=== PATIENT | female | born 1975 | race Caucasian/White ===

== ENCOUNTER 2022-03-06 09:00 | Outpatient (RCR) | payer OTHER, SELFPAY ==
--- NOTE | 2022-02-24 14:04 | ONC.NURNOTE ---
Authorization: User: Alessandra Shine Date: 05/24/21 11:03 Type: Eligibility Determination Note... Request received from [facility] for prior authorization of Oxaliplatin J9263, Leucovorin Calcium J0640, Fluorouracil J9190 and Aloxi J2469. Patient carries [facility] as primary insurance. Cristobal Lin at [facility] Oxaliplatin, Leucovorin, Fluorouracil and Aloxi [facility] approved from 05/30/2021 through 05/30/2022. Authorization #[id number]
[2022-02-27 08:08] LABS: Basophils Absolute Auto 0.03 K/uL (0.00-0.30); Basophils Percent Auto 0.6 % (0.0-3.0); Eosinophils Percent Auto 7.1 % (0.0-7.0); Hematocrit 37.8 % (33.0-51.0); Hemoglobin* 12.3 gm/dL (12.0-16.0); Immature Granulocytes Abs Auto 0.01 K/uL (0.00-0.30); Lymphocytes Percent Auto 21.5 % (20-44); Mean Corpuscular HGB Conc 33 gm/dL (32-36); Mean Corpuscular Hemoglobin 27 pg (26-34); Mean Corpuscular Volume 83 fL (80-100); Monocytes Percent Auto 8.2 % (0.0-11.0); Neutrophils Absolute Auto 2.91 K/uL (1.7-7.0); Neutrophils Percent Auto 62.4 % (42.0-72.0); Platelet Count* 282 K/uL (140-440); RDW Coefficient of Variation % 13.5 % (11.5-15.5); Red Blood Count 4.58 m/uL (4.00-5.20); White Blood Count* 4.66 K/uL (4.50-11.00)
[2022-02-27 08:21] LABS: Albumin* 4.3 g/dL (3.3-5.0); Chloride* 104 mmol/L (96-114); Slide Review Reflex No; Sodium* 137 mmol/L (135-149)
[2022-02-27 08:24] LABS: Alanine Aminotransferase* 15 U/L (4-35); Alkaline Phosphatase* 84 U/L (40-150); Aspartate Amino Transferase* 24 U/L (12-35); Bilirubin Total* 0.5 mg/dL (0.1-1.5); Blood Urea Nitrogen* 15 mg/dL (5-24); Carbon Dioxide* 26 mmol/L (20-32); Creatinine* 0.7 mg/dL (0.5-1.5); Est. Creatinine Clearance* 91.32; Estimated Glomerular Filt Rate 109 ml/min; Glucose* 96 mg/dL (60-115); Total Protein* 7.1 g/dL (6.0-8.3)
[2022-02-27 08:25] LABS: Calcium* 9.2 mg/dL (8.4-10.6)
--- NOTE | 2022-03-08 13:50 | ONC.NURNOTE ---
Addendum entered and electronically signed by Shanellabner Farris, OFFICE SUPPORT ASSOCIATE 03/08/22 18:41: Dr. Rivera recommends if Ablation occurs on March 20, Ms. Barba's 5FU treatments could start possibly two weeks later around April 03. We will follow previous plan for 75% of 5FU doses for weeks one and two and then give 5FU along with oxaliplatin for week three. Also recommend stopping eliquis for 3-4 days prior to ablation, and have Ms. Barba verify with Dr. Arambula's team. This information was shared with Ms. Barba with request to contact us after her ablation with update on her status. She is agreeable to this plan. Original Note: Coordination of care: Holding FLOX chemo, to have ablation. After further discussion with Dr. Rivera and Dr. Arambula at [facility], Ms. Barba has decided to proceed with lung ablation before receiving FLOX chemotherapy. She has appointment with Dr. Arambula for Ablation at [place] on March 20. Questions regarding anticoagulation prior to ablation deferred to Dr. Arambula's team. Will message Dr. Rivera and also have Ms. Barba follow up with Dr. Arambula regarding when to schedule chemotherapy.
== END 2022-03-12 23:59 | disposition home or self-care (01) ==
LOC: CCIC 09:00
PROVIDERS: Visit Provider Internal Medicine Medical Oncology
DX: C20 Malignant neoplasm of rectum (principal)
CPT/HCPCS: 36415; 36591; 80053; 85025; 99212; 99215

== ENCOUNTER 2022-09-25 09:30 | Outpatient (RCR) | payer BC, OTHER, SELFPAY ==
[2022-04-03 09:37] LABS: Basophils Absolute Auto 0.04 K/uL (0.00-0.30); Basophils Percent Auto 0.7 % (0.0-3.0); Eosinophils Absolute Auto 0.31 K/uL (0.00-0.50); Eosinophils Percent Auto 5.6 % (0.0-7.0); Hematocrit 36.2 % (33.0-51.0); Hemoglobin* 11.8 gm/dL (12.0-16.0); Immature Granulocytes Abs Auto 0.01 K/uL (0.00-0.30); Lymphocytes Percent Auto 17.4 % (20-44); Mean Corpuscular HGB Conc 33 gm/dL (32-36); Mean Corpuscular Hemoglobin 27 pg (26-34); Mean Corpuscular Volume 83 fL (80-100); Monocytes Percent Auto 7.4 % (0.0-11.0); Neutrophils Absolute Auto 3.83 K/uL (1.7-7.0); Neutrophils Percent Auto 68.7 % (42.0-72.0); Platelet Count* 311 K/uL (140-440); RDW Coefficient of Variation % 12.2 % (11.5-15.5); Red Blood Count 4.39 m/uL (4.00-5.20); White Blood Count* 5.57 K/uL (4.50-11.00)
[2022-04-03 09:40] LABS: Slide Review Reflex No
[2022-04-03 10:34] LABS: Chloride* 105 mmol/L (96-114); Sodium* 138 mmol/L (135-149)
[2022-04-03 10:35] LABS: Potassium* 3.9 mmol/L (3.6-5.1)
[2022-04-03 10:37] LABS: Alanine Aminotransferase* 20 U/L (4-35); Alkaline Phosphatase* 101 U/L (40-150); Aspartate Amino Transferase* 26 U/L (12-35); Bilirubin Total* 0.4 mg/dL (0.1-1.5); Blood Urea Nitrogen* 19 mg/dL (5-24); Carbon Dioxide* 26 mmol/L (20-32); Creatinine* 0.7 mg/dL (0.5-1.5); Estimated Glomerular Filt Rate 109 ml/min; Glucose* 93 mg/dL (60-115); Total Protein* 7.1 g/dL (6.0-8.3)
[2022-04-03 10:38] LABS: Calcium* 8.7 mg/dL (8.4-10.6)
[2022-04-03] MEDS: ONDANSETRON 2 MG/ML inj 8 MG IVP (10:56)
[2022-04-03] MEDS: fluorouraciL 50 mg/ml INJ 650 MG IV (13:40)
[2022-04-03] MEDS: SODIUM CHLORIDE 0.9 % (FLUSH) 10 ML SYRINGE IVF (15:39)
[2022-04-03] MEDS: HEPARIN 500 UNIT/5 ML SYRINGE IVF (15:39)
[2022-04-03 16:27] VITALS: PULSE 70; RESP 12; TEMP 36.1; O2SAT 98
[2022-04-10 10:04] VITALS: BP 127/77; PULSE 77; RESP 16; TEMP 37; O2SAT 98
[2022-04-10 10:21] LABS: Basophils Percent Auto 0.5 % (0.0-3.0); Eosinophils Percent Auto 6.3 % (0.0-7.0); Hematocrit 36.1 % (33.0-51.0); Hemoglobin* 11.8 gm/dL (12.0-16.0); Immature Granulocytes Abs Auto 0.01 K/uL (0.00-0.30); Lymphocytes Percent Auto 17.4 % (20-44); Mean Corpuscular HGB Conc 33 gm/dL (32-36); Mean Corpuscular Hemoglobin 27 pg (26-34); Mean Corpuscular Volume 84 fL (80-100); Monocytes Percent Auto 9.3 % (0.0-11.0); Neutrophils Percent Auto 66.3 % (42.0-72.0); Platelet Count* 302 K/uL (140-440); RDW Coefficient of Variation % 12.3 % (11.5-15.5); Red Blood Count 4.32 m/uL (4.00-5.20); White Blood Count* 4.31 K/uL (4.50-11.00)
[2022-04-10 10:25] LABS: Slide Review Reflex No
[2022-04-10 10:32] LABS: Albumin* 4.2 g/dL (3.3-5.0); Chloride* 104 mmol/L (96-114); Potassium* 3.8 mmol/L (3.6-5.1); Sodium* 139 mmol/L (135-149)
[2022-04-10 10:35] LABS: Alanine Aminotransferase* 14 U/L (4-35); Alkaline Phosphatase* 82 U/L (40-150); Aspartate Amino Transferase* 25 U/L (12-35); Bilirubin Total* 0.4 mg/dL (0.1-1.5); Blood Urea Nitrogen* 16 mg/dL (5-24); Carbon Dioxide* 27 mmol/L (20-32); Creatinine* 0.7 mg/dL (0.5-1.5); Estimated Glomerular Filt Rate 109 ml/min; Glucose* 121 mg/dL (60-115); Total Protein* 7.1 g/dL (6.0-8.3)
[2022-04-10 10:36] LABS: Calcium* 8.8 mg/dL (8.4-10.6)
[2022-04-10] MEDS: ONDANSETRON 2 MG/ML inj 8 MG IVP (11:12)
[2022-04-10] MEDS: SODIUM CHLORIDE 0.9 % (FLUSH) 10 ML SYRINGE IVF (11:13)
[2022-04-10] MEDS: fluorouraciL 50 mg/ml INJ 650 MG IV (13:23)
[2022-04-18 09:54] LABS: Basophils Absolute Auto 0.04 K/uL (0.00-0.30); Basophils Percent Auto 0.8 % (0.0-3.0); Eosinophils Absolute Auto 0.27 K/uL (0.00-0.50); Eosinophils Percent Auto 5.5 % (0.0-7.0); Hematocrit 36.9 % (33.0-51.0); Hemoglobin* 12.1 gm/dL (12.0-16.0); Lymphocytes Percent Auto 22.4 % (20-44); Mean Corpuscular HGB Conc 33 gm/dL (32-36); Mean Corpuscular Hemoglobin 27 pg (26-34); Mean Corpuscular Volume 83 fL (80-100); Neutrophils Absolute Auto 3.06 K/uL (1.7-7.0); Neutrophils Percent Auto 62.3 % (42.0-72.0); Platelet Count* 247 K/uL (140-440); RDW Coefficient of Variation % 13.1 % (11.5-15.5); Red Blood Count 4.43 m/uL (4.00-5.20); White Blood Count* 4.91 K/uL (4.50-11.00)
[2022-04-18 10:10] LABS: Albumin* 4.5 g/dL (3.3-5.0); Chloride* 102 mmol/L (96-114); Potassium* 4.3 mmol/L (3.6-5.1); Slide Review Reflex No; Sodium* 136 mmol/L (135-149)
[2022-04-18 10:13] LABS: Alanine Aminotransferase* 13 U/L (4-35); Alkaline Phosphatase* 84 U/L (40-150); Aspartate Amino Transferase* 23 U/L (12-35); Bilirubin Total* 0.5 mg/dL (0.1-1.5); Blood Urea Nitrogen* 17 mg/dL (5-24); Carbon Dioxide* 27 mmol/L (20-32); Creatinine* 0.7 mg/dL (0.5-1.5); Estimated Glomerular Filt Rate 109 ml/min; Glucose* 93 mg/dL (60-115); Total Protein* 7.3 g/dL (6.0-8.3)
[2022-04-18 10:14] LABS: Calcium* 8.9 mg/dL (8.4-10.6)
[2022-04-18] MEDS: PALONOSETRON 0.25 MG/5 ML inj IVP (11:18)
[2022-04-18] MEDS: SODIUM CHLORIDE 0.9 % (FLUSH) 10 ML SYRINGE IVF ×2 (11:18→14:03)
[2022-04-18] MEDS: dexAMETHasone 20 MG in 0.9 % SODIUM CHLORIDE 100 ml 100 ML 408 MG IVPB (11:18)
[2022-04-18] MEDS: HEPARIN 500 UNIT/5 ML SYRINGE IVF (14:03)
[2022-04-18] MEDS: fluorouraciL 50 mg/ml INJ 650 MG IV (14:03)
[2022-04-24 09:41] LABS: Basophils Percent Auto 0.7 % (0.0-3.0); Eosinophils Percent Auto 6.5 % (0.0-7.0); Hematocrit 37.3 % (33.0-51.0); Hemoglobin* 12.3 gm/dL (12.0-16.0); Mean Corpuscular HGB Conc 33 gm/dL (32-36); Mean Corpuscular Hemoglobin 27 pg (26-34); Mean Corpuscular Volume 83 fL (80-100); Monocytes Percent Auto 9.3 % (0.0-11.0); Neutrophils Percent Auto 60.5 % (42.0-72.0); Platelet Count* 262 K/uL (140-440); Red Blood Count 4.52 m/uL (4.00-5.20); White Blood Count* 4.18 K/uL (4.50-11.00)
[2022-04-24 09:49] LABS: Albumin* 4.4 g/dL (3.3-5.0); Chloride* 104 mmol/L (96-114); Potassium* 4.3 mmol/L (3.6-5.1); Sodium* 137 mmol/L (135-149)
[2022-04-24 09:51] LABS: Bilirubin Total* 0.5 mg/dL (0.1-1.5); Creatinine* 0.7 mg/dL (0.5-1.5); Estimated Glomerular Filt Rate 109 ml/min
[2022-04-24 09:51] LABS: Slide Review Reflex No
[2022-04-24 09:52] LABS: Alanine Aminotransferase* 13 U/L (4-35); Alkaline Phosphatase* 80 U/L (40-150); Aspartate Amino Transferase* 22 U/L (12-35); Blood Urea Nitrogen* 20 mg/dL (5-24); Carbon Dioxide* 27 mmol/L (20-32); Glucose* 105 mg/dL (60-115); Total Protein* 7.2 g/dL (6.0-8.3)
[2022-04-24] MEDS: PALONOSETRON 0.25 MG/5 ML inj IVP (11:31)
[2022-04-24] MEDS: 5 % DEXTROSE 250 ML IV (12:33)
[2022-04-24] MEDS: HEPARIN 500 UNIT/5 ML SYRINGE IVF (12:33)
[2022-04-24] MEDS: fluorouraciL 50 mg/ml INJ 650 MG IV (13:12)
[2022-05-01 09:35] VITALS: BP 110/74; PULSE 74; RESP 16; TEMP 36.3; O2SAT 100
[2022-05-01 10:05] LABS: Basophils Absolute Auto 0.03 K/uL (0.00-0.30); Basophils Percent Auto 0.6 % (0.0-3.0); Eosinophils Absolute Auto 0.31 K/uL (0.00-0.50); Eosinophils Percent Auto 6.3 % (0.0-7.0); Hematocrit 34.1 % (33.0-51.0); Hemoglobin* 11.3 gm/dL (12.0-16.0); Lymphocytes Absolute Auto 1.12 K/uL (0.90-2.90); Lymphocytes Percent Auto 22.8 % (20-44); Mean Corpuscular HGB Conc 33 gm/dL (32-36); Mean Corpuscular Hemoglobin 28 pg (26-34); Mean Corpuscular Volume 84 fL (80-100); Monocytes Percent Auto 7.1 % (0.0-11.0); Neutrophils Absolute Auto 3.11 K/uL (1.7-7.0); Neutrophils Percent Auto 63.2 % (42.0-72.0); Platelet Count* 239 K/uL (140-440); RDW Coefficient of Variation % 13.2 % (11.5-15.5); Red Blood Count 4.08 m/uL (4.00-5.20); White Blood Count* 4.92 K/uL (4.50-11.00)
[2022-05-01 10:13] LABS: Slide Review Reflex No
[2022-05-01 10:18] LABS: Albumin* 4.2 g/dL (3.3-5.0); Chloride* 104 mmol/L (96-114); Sodium* 138 mmol/L (135-149)
[2022-05-01 10:20] LABS: Carbon Dioxide* 27 mmol/L (20-32); Creatinine* 0.6 mg/dL (0.5-1.5); Estimated Glomerular Filt Rate 113 ml/min
[2022-05-01 10:21] LABS: Alanine Aminotransferase* 14 U/L (4-35); Alkaline Phosphatase* 79 U/L (40-150); Aspartate Amino Transferase* 23 U/L (12-35); Bilirubin Total* 0.2 mg/dL (0.1-1.5); Blood Urea Nitrogen* 19 mg/dL (5-24); Calcium* 8.7 mg/dL (8.4-10.6); Glucose* 100 mg/dL (60-115); Total Protein* 6.8 g/dL (6.0-8.3)
[2022-05-01] MEDS: 5 % DEXTROSE 250 ML IV (11:16)
[2022-05-01] MEDS: dexAMETHasone 20 MG in 0.9 % SODIUM CHLORIDE 100 ml 100 ML 408 MG IVPB (11:16)
[2022-05-01] MEDS: PALONOSETRON 0.25 MG/5 ML inj IVP (11:16)
[2022-05-01] MEDS: fluorouraciL 50 mg/ml INJ 650 MG IV (13:55)
[2022-05-01] MEDS: SODIUM CHLORIDE 0.9 % (FLUSH) 10 ML SYRINGE IVF (14:00)
[2022-05-01] MEDS: HEPARIN 500 UNIT/5 ML SYRINGE IVF (14:00)
[2022-05-08 09:34] VITALS: BP 110/75; PULSE 74; RESP 16; TEMP 36.1; O2SAT 99
[2022-05-08 09:57] LABS: Basophils Absolute Auto 0.03 K/uL (0.00-0.30); Basophils Percent Auto 0.6 % (0.0-3.0); Eosinophils Percent Auto 8.8 % (0.0-7.0); Hematocrit 34.7 % (33.0-51.0); Hemoglobin* 11.7 gm/dL (12.0-16.0); Immature Granulocytes Abs Auto 0.01 K/uL (0.00-0.30); Lymphocytes Percent Auto 27.3 % (20-44); Mean Corpuscular HGB Conc 34 gm/dL (32-36); Mean Corpuscular Hemoglobin 28 pg (26-34); Mean Corpuscular Volume 83 fL (80-100); Monocytes Percent Auto 9.2 % (0.0-11.0); Neutrophils Absolute Auto 2.57 K/uL (1.7-7.0); Neutrophils Percent Auto 53.9 % (42.0-72.0); Platelet Count* 259 K/uL (140-440); RDW Coefficient of Variation % 14.2 % (11.5-15.5); Red Blood Count 4.17 m/uL (4.00-5.20); White Blood Count* 4.77 K/uL (4.50-11.00)
[2022-05-08 10:10] LABS: Albumin* 4.1 g/dL (3.3-5.0); Chloride* 102 mmol/L (96-114); Sodium* 137 mmol/L (135-149)
[2022-05-08 10:11] LABS: Potassium* 3.8 mmol/L (3.6-5.1)
[2022-05-08 10:12] LABS: Slide Review Reflex No
[2022-05-08 10:13] LABS: Alanine Aminotransferase* 13 U/L (4-35); Alkaline Phosphatase* 75 U/L (40-150); Aspartate Amino Transferase* 18 U/L (12-35); Bilirubin Total* 0.4 mg/dL (0.1-1.5); Blood Urea Nitrogen* 17 mg/dL (5-24); Carbon Dioxide* 29 mmol/L (20-32); Creatinine* 0.7 mg/dL (0.5-1.5); Estimated Glomerular Filt Rate 109 ml/min; Glucose* 112 mg/dL (60-115); Total Protein* 6.6 g/dL (6.0-8.3)
[2022-05-08 10:14] LABS: Calcium* 8.8 mg/dL (8.4-10.6)
[2022-05-08] MEDS: SODIUM CHLORIDE 0.9 % (FLUSH) 10 ML SYRINGE IVF (10:49)
[2022-05-08] MEDS: PROCHLORPERAZINE 10 MG TABLET PO (10:49)
[2022-05-08] MEDS: HEPARIN 500 UNIT/5 ML SYRINGE IVF (10:49)
[2022-05-08] MEDS: PALONOSETRON 0.25 MG/5 ML inj IVP (10:49)
[2022-05-08] MEDS: fluorouraciL 50 mg/ml INJ 650 MG IV (13:27)
--- NOTE | 2022-05-08 14:02 | ONC.NURNOTE ---
states taking liquids well. good u/o. nausea today. last couple of day 3-4 diarrhea. Shanell Strong APRN aware and aloxi and compazine ordered for nausea with relief.
[2022-05-29 09:07] LABS: Basophils Percent Auto 0.8 % (0.0-3.0); Eosinophils Percent Auto 5.8 % (0.0-7.0); Hematocrit 38.4 % (33.0-51.0); Hemoglobin* 12.9 gm/dL (12.0-16.0); Immature Granulocytes Abs Auto 0.01 K/uL (0.00-0.30); Lymphocytes Percent Auto 25.3 % (20-44); Mean Corpuscular HGB Conc 34 gm/dL (32-36); Mean Corpuscular Hemoglobin 28 pg (26-34); Mean Corpuscular Volume 84 fL (80-100); Monocytes Percent Auto 9.3 % (0.0-11.0); Neutrophils Percent Auto 58.5 % (42.0-72.0); Platelet Count* 225 K/uL (140-440); RDW Coefficient of Variation % 15.7 % (11.5-15.5); Red Blood Count 4.55 m/uL (4.00-5.20); White Blood Count* 3.99 K/uL (4.50-11.00)
[2022-05-29 09:24] LABS: Albumin* 4.6 g/dL (3.3-5.0); Chloride* 103 mmol/L (96-114); Potassium* 4.2 mmol/L (3.6-5.1); Sodium* 138 mmol/L (135-149)
[2022-05-29 09:26] LABS: Bilirubin Total* 0.5 mg/dL (0.1-1.5); Carbon Dioxide* 27 mmol/L (20-32); Creatinine* 0.7 mg/dL (0.5-1.5); Estimated Glomerular Filt Rate 109 ml/min
[2022-05-29 09:27] LABS: Alanine Aminotransferase* 35 U/L (4-35); Alkaline Phosphatase* 95 U/L (40-150); Aspartate Amino Transferase* 30 U/L (12-35); Blood Urea Nitrogen* 16 mg/dL (5-24); Calcium* 9.7 mg/dL (8.4-10.6); Glucose* 92 mg/dL (60-115); Total Protein* 7.5 g/dL (6.0-8.3)
[2022-05-29 09:29] LABS: Slide Review Reflex No
[2022-05-29] MEDS: dexAMETHasone 20 MG in 0.9 % SODIUM CHLORIDE 100 ml 100 ML 408 MG IVPB (10:30)
[2022-05-29] MEDS: fluorouraciL 50 mg/ml INJ 650 MG IV (13:11)
[2022-05-29] MEDS: HEPARIN 500 UNIT/5 ML SYRINGE IVF (15:29)
[2022-05-29] MEDS: 5 % DEXTROSE 250 ML IV (15:29)
[2022-05-29] MEDS: SODIUM CHLORIDE 0.9 % (FLUSH) 10 ML SYRINGE IVF (15:29)
--- NOTE | 2022-06-05 08:10 | URNOTE ---
Request received from [facility] for prior authorization of Oxaliplatin J9263, Leucovorin Calcium J0640, Fluorouracil J9190 and Aloxi J2469. Patient carries [facility] as primary insurance. Per Alyse Rodriguez continuation of treatment of Oxalipatin, Leucovorin, Fluorouracil and Aloxi has been Approved from 06/05/22-06/05/23. Authorization #[id number].
[2022-06-05 10:04] VITALS: BP 101/66; PULSE 80; RESP 16; TEMP 36.3; O2SAT 100
[2022-06-05 10:30] LABS: Basophils Absolute Auto 0.02 K/uL (0.00-0.30); Basophils Percent Auto 0.3 % (0.0-3.0); Eosinophils Absolute Auto 0.27 K/uL (0.00-0.50); Eosinophils Percent Auto 3.6 % (0.0-7.0); Hematocrit 35.7 % (33.0-51.0); Hemoglobin* 11.9 gm/dL (12.0-16.0); Immature Granulocytes Abs Auto 0.23 K/uL (0.00-0.30); Lymphocytes Percent Auto 21.5 % (20-44); Mean Corpuscular HGB Conc 33 gm/dL (32-36); Mean Corpuscular Hemoglobin 29 pg (26-34); Mean Corpuscular Volume 85 fL (80-100); Monocytes Percent Auto 7.1 % (0.0-11.0); Neutrophils Absolute Auto 4.78 K/uL (1.7-7.0); Neutrophils Percent Auto 64.4 % (42.0-72.0); Platelet Count* 239 K/uL (140-440); RDW Coefficient of Variation % 15.9 % (11.5-15.5); Red Blood Count 4.18 m/uL (4.00-5.20); White Blood Count* 7.43 K/uL (4.50-11.00)
[2022-06-05 10:39] LABS: Albumin* 4.1 g/dL (3.3-5.0); Chloride* 102 mmol/L (96-114); Sodium* 138 mmol/L (135-149)
[2022-06-05 10:40] LABS: Potassium* 3.9 mmol/L (3.6-5.1)
[2022-06-05 10:42] LABS: Alanine Aminotransferase* 19 U/L (4-35); Alkaline Phosphatase* 87 U/L (40-150); Aspartate Amino Transferase* 21 U/L (12-35); Bilirubin Total* 0.4 mg/dL (0.1-1.5); Blood Urea Nitrogen* 23 mg/dL (5-24); Carbon Dioxide* 27 mmol/L (20-32); Creatinine* 0.7 mg/dL (0.5-1.5); Estimated Glomerular Filt Rate 109 ml/min; Total Protein* 6.6 g/dL (6.0-8.3)
[2022-06-05 10:43] LABS: Calcium* 8.8 mg/dL (8.4-10.6); Glucose* 123 mg/dL (60-115)
[2022-06-05 10:50] LABS: Slide Review Reflex No
[2022-06-05] MEDS: PALONOSETRON 0.25 MG/5 ML inj IVP (11:47)
[2022-06-05] MEDS: 5 % DEXTROSE 250 ML IV (11:47)
[2022-06-05] MEDS: fluorouraciL 50 mg/ml INJ 650 MG IV (13:55)
[2022-06-05] MEDS: SODIUM CHLORIDE 0.9 % (FLUSH) 10 ML SYRINGE IVF (14:00)
[2022-06-05] MEDS: HEPARIN 500 UNIT/5 ML SYRINGE IVF (14:00)
[2022-06-12 10:05] VITALS: BP 117/82; PULSE 77; RESP 16; TEMP 36.8; O2SAT 98
[2022-06-12 10:27] LABS: Basophils Absolute Auto 0.02 K/uL (0.00-0.30); Basophils Percent Auto 0.3 % (0.0-3.0); Eosinophils Absolute Auto 0.14 K/uL (0.00-0.50); Eosinophils Percent Auto 2.3 % (0.0-7.0); Hematocrit 34.1 % (33.0-51.0); Hemoglobin* 11.3 gm/dL (12.0-16.0); Immature Granulocytes Abs Auto 0.03 K/uL (0.00-0.30); Lymphocytes Absolute Auto 1.33 K/uL (0.90-2.90); Lymphocytes Percent Auto 21.6 % (20-44); Mean Corpuscular HGB Conc 33 gm/dL (32-36); Mean Corpuscular Hemoglobin 29 pg (26-34); Mean Corpuscular Volume 87 fL (80-100); Monocytes Percent Auto 8.1 % (0.0-11.0); Neutrophils Absolute Auto 4.15 K/uL (1.7-7.0); Neutrophils Percent Auto 67.2 % (42.0-72.0); Platelet Count* 214 K/uL (140-440); RDW Coefficient of Variation % 16.1 % (11.5-15.5); Red Blood Count 3.94 m/uL (4.00-5.20); White Blood Count* 6.17 K/uL (4.50-11.00)
[2022-06-12 10:29] LABS: Slide Review Reflex No
[2022-06-12 10:45] LABS: Albumin* 4.1 g/dL (3.3-5.0); Chloride* 104 mmol/L (96-114)
[2022-06-12 10:46] LABS: Potassium* 3.9 mmol/L (3.6-5.1); Sodium* 138 mmol/L (135-149)
[2022-06-12 10:48] LABS: Aspartate Amino Transferase* 26 U/L (12-35); Bilirubin Total* 0.3 mg/dL (0.1-1.5); Blood Urea Nitrogen* 17 mg/dL (5-24); Carbon Dioxide* 28 mmol/L (20-32); Creatinine* 0.6 mg/dL (0.5-1.5); Estimated Glomerular Filt Rate 113 ml/min; Total Protein* 6.7 g/dL (6.0-8.3)
[2022-06-12 10:49] LABS: Alkaline Phosphatase* 76 U/L (40-150); Calcium* 8.7 mg/dL (8.4-10.6); Glucose* 107 mg/dL (60-115)
[2022-06-12 11:07] LABS: Alanine Aminotransferase* 23 U/L (4-35)
[2022-06-12] MEDS: PALONOSETRON 0.25 MG/5 ML inj IVP (11:33)
[2022-06-12] MEDS: dexAMETHasone 20 MG in 0.9 % SODIUM CHLORIDE 100 ml 100 ML 408 MG IVPB (11:34)
[2022-06-12] MEDS: fluorouraciL 50 mg/ml INJ 650 MG IV (14:04)
[2022-06-12] MEDS: HEPARIN 500 UNIT/5 ML SYRINGE IVF (14:14)
[2022-06-12] MEDS: SODIUM CHLORIDE 0.9 % (FLUSH) 10 ML SYRINGE IVF (14:14)
[2022-06-19 10:16] VITALS: BP 121/82; PULSE 83; RESP 16; TEMP 36.7; O2SAT 97
[2022-06-19 10:45] LABS: Basophils Absolute Auto 0.02 K/uL (0.00-0.30); Basophils Percent Auto 0.4 % (0.0-3.0); Eosinophils Absolute Auto 0.24 K/uL (0.00-0.50); Eosinophils Percent Auto 5.3 % (0.0-7.0); Hematocrit 33.5 % (33.0-51.0); Hemoglobin* 11.2 gm/dL (12.0-16.0); Immature Granulocytes Abs Auto 0.04 K/uL (0.00-0.30); Immature Granulocytes Pct Auto 0.9 %; Lymphocytes Absolute Auto 1.26 K/uL (0.90-2.90); Lymphocytes Percent Auto 27.7 % (20-44); Mean Corpuscular HGB Conc 33 gm/dL (32-36); Mean Corpuscular Hemoglobin 29 pg (26-34); Mean Corpuscular Volume 87 fL (80-100); Neutrophils Absolute Auto 2.58 K/uL (1.7-7.0); Neutrophils Percent Auto 56.7 % (42.0-72.0); Platelet Count* 199 K/uL (140-440); Red Blood Count 3.85 m/uL (4.00-5.20); White Blood Count* 4.55 K/uL (4.50-11.00)
[2022-06-19 10:47] LABS: Slide Review Reflex No
[2022-06-19 10:50] LABS: Albumin* 4.1 g/dL (3.3-5.0); Chloride* 105 mmol/L (96-114); Potassium* 3.7 mmol/L (3.6-5.1); Sodium* 138 mmol/L (135-149)
[2022-06-19 10:52] LABS: Creatinine* 0.6 mg/dL (0.5-1.5); Estimated Glomerular Filt Rate 113 ml/min
[2022-06-19 10:53] LABS: Alanine Aminotransferase* 22 U/L (4-35); Alkaline Phosphatase* 72 U/L (40-150); Aspartate Amino Transferase* 23 U/L (12-35); Bilirubin Total* 0.2 mg/dL (0.1-1.5); Blood Urea Nitrogen* 18 mg/dL (5-24); Carbon Dioxide* 26 mmol/L (20-32); Glucose* 107 mg/dL (60-115); Total Protein* 6.7 g/dL (6.0-8.3)
[2022-06-19 10:54] LABS: Calcium* 8.7 mg/dL (8.4-10.6)
[2022-06-19] MEDS: 5 % DEXTROSE 250 ML IV (11:41)
[2022-06-19] MEDS: PALONOSETRON 0.25 MG/5 ML inj IVP (11:41)
[2022-06-19] MEDS: fluorouraciL 50 mg/ml INJ 650 MG IV (13:35)
[2022-06-26 10:56] LABS: Basophils Absolute Auto 0.03 K/uL (0.00-0.30); Basophils Percent Auto 0.6 % (0.0-3.0); Eosinophils Absolute Auto 0.24 K/uL (0.00-0.50); Eosinophils Percent Auto 4.9 % (0.0-7.0); Hematocrit 33.1 % (33.0-51.0); Hemoglobin* 11.2 gm/dL (12.0-16.0); Immature Granulocytes Abs Auto 0.02 K/uL (0.00-0.30); Immature Granulocytes Pct Auto 0.4 %; Lymphocytes Absolute Auto 1.07 K/uL (0.90-2.90); Mean Corpuscular HGB Conc 34 gm/dL (32-36); Mean Corpuscular Hemoglobin 29 pg (26-34); Mean Corpuscular Volume 87 fL (80-100); Monocytes Percent Auto 8.6 % (0.0-11.0); Neutrophils Absolute Auto 3.09 K/uL (1.7-7.0); Neutrophils Percent Auto 63.5 % (42.0-72.0); Platelet Count* 182 K/uL (140-440); RDW Coefficient of Variation % 16.7 % (11.5-15.5); Red Blood Count 3.81 m/uL (4.00-5.20); White Blood Count* 4.87 K/uL (4.50-11.00)
[2022-06-26 11:05] LABS: Slide Review Reflex No
[2022-06-26 11:26] LABS: Albumin* 4.2 g/dL (3.3-5.0); Chloride* 103 mmol/L (96-114); Potassium* 3.5 mmol/L (3.6-5.1); Sodium* 139 mmol/L (135-149)
[2022-06-26 11:29] LABS: Alanine Aminotransferase* 85 U/L (4-35); Alkaline Phosphatase* 89 U/L (40-150); Aspartate Amino Transferase* 56 U/L (12-35); Bilirubin Total* 0.6 mg/dL (0.1-1.5); Blood Urea Nitrogen* 16 mg/dL (5-24); Carbon Dioxide* 29 mmol/L (20-32); Creatinine* 0.7 mg/dL (0.5-1.5); Estimated Glomerular Filt Rate 109 ml/min; Glucose* 101 mg/dL (60-115); Total Protein* 6.9 g/dL (6.0-8.3)
[2022-06-26] MEDS: PALONOSETRON 0.25 MG/5 ML inj IVP (12:18)
[2022-06-26] MEDS: dexAMETHasone 20 MG in 0.9 % SODIUM CHLORIDE 100 ml 100 ML 408 MG IVPB (12:19)
[2022-06-26] MEDS: fluorouraciL 50 mg/ml INJ 650 MG IV (14:59)
[2022-07-03 10:07] VITALS: BP 115/85; PULSE 73; RESP 16; TEMP 37.4; O2SAT 97
[2022-07-03 10:32] LABS: Basophils Absolute Auto 0.02 K/uL (0.00-0.30); Basophils Percent Auto 0.3 % (0.0-3.0); Eosinophils Absolute Auto 0.38 K/uL (0.00-0.50); Eosinophils Percent Auto 6.5 % (0.0-7.0); Hematocrit 34.3 % (33.0-51.0); Hemoglobin* 11.9 gm/dL (12.0-16.0); Immature Granulocytes Abs Auto 0.05 K/uL (0.00-0.30); Immature Granulocytes Pct Auto 0.9 %; Lymphocytes Absolute Auto 1.39 K/uL (0.90-2.90); Lymphocytes Percent Auto 23.8 % (20-44); Mean Corpuscular HGB Conc 35 gm/dL (32-36); Mean Corpuscular Hemoglobin 30 pg (26-34); Mean Corpuscular Volume 87 fL (80-100); Monocytes Percent Auto 10.5 % (0.0-11.0); Neutrophils Absolute Auto 3.38 K/uL (1.7-7.0); Platelet Count* 213 K/uL (140-440); RDW Coefficient of Variation % 16.8 % (11.5-15.5); Red Blood Count 3.94 m/uL (4.00-5.20); White Blood Count* 5.83 K/uL (4.50-11.00)
[2022-07-03 10:33] LABS: Slide Review Reflex No
[2022-07-03 10:46] LABS: Albumin* 4.2 g/dL (3.3-5.0); Chloride* 103 mmol/L (96-114); Potassium* 3.5 mmol/L (3.6-5.1); Sodium* 138 mmol/L (135-149)
[2022-07-03 10:48] LABS: Bilirubin Total* 0.7 mg/dL (0.1-1.5); Carbon Dioxide* 29 mmol/L (20-32); Creatinine* 0.7 mg/dL (0.5-1.5); Estimated Glomerular Filt Rate 109 ml/min
[2022-07-03 10:49] LABS: Alanine Aminotransferase* 76 U/L (4-35); Alkaline Phosphatase* 89 U/L (40-150); Aspartate Amino Transferase* 42 U/L (12-35); Blood Urea Nitrogen* 18 mg/dL (5-24); Calcium* 8.7 mg/dL (8.4-10.6); Glucose* 110 mg/dL (60-115); Total Protein* 6.9 g/dL (6.0-8.3)
[2022-07-03] MEDS: 0.9 % SODIUM CHLORIDE 1000 ml 1,000 ML IV (11:14)
[2022-07-03] MEDS: PALONOSETRON 0.25 MG/5 ML inj IVP (12:12)
[2022-07-03 13:24] LABS: C.Difficile Negative (Negative); CDIFFEPI 027 PRESUMPTIVE NEGATIVE (Negative)
[2022-07-03] MEDS: fluorouraciL 50 mg/ml INJ 650 MG IV (13:48)
[2022-08-21] MEDS: HEPARIN 500 UNIT/5 ML SYRINGE IVF (10:06)
[2022-08-21] MEDS: SODIUM CHLORIDE 0.9 % (FLUSH) 10 ML SYRINGE IVF (10:06)
[2022-09-25] MEDS: HEPARIN 500 UNIT/5 ML SYRINGE IVF (10:52)
[2022-09-25] MEDS: SODIUM CHLORIDE 0.9 % (FLUSH) 10 ML SYRINGE IVF (10:52)
== END 2022-09-30 23:59 | disposition home or self-care (01) ==
LOC: CCIC 09:30
PROVIDERS: Internal Medicine Medical Oncology; Visit Provider Clinical Nurse Specialist
DX: C20 Malignant neoplasm of rectum (principal)
CPT/HCPCS: 36415; 36591; 36592; 80053; 85025; 87493; 96361; 96365; 96366; 96368; 96376; 96409; 96411; 96413; 96415; 99211; 99212; 99213; 99214; 99215; 99442; A9270; J0640; J1100; J1642; J2405; J2469; J7030; J7050; J9190; J9263

== ENCOUNTER 2023-04-03 10:03 | Outpatient (RCR) | payer BC, SELFPAY | END 2023-05-21 23:59 | disposition home or self-care (01) | LOC: CCIC 10:03 | PROVIDERS: Visit Provider Clinical Nurse Specialist | DX: C20 Malignant neoplasm of rectum (principal) | CPT/HCPCS: 99211 ==

== ENCOUNTER 2023-10-04 09:30 | Outpatient (RCR) | payer BC, SELFPAY ==
[2023-06-11] MEDS: SODIUM CHLORIDE 0.9 % (FLUSH) 10 ML SYRINGE IVF (11:53)
[2023-06-11] MEDS: HEPARIN 500 UNIT/5 ML SYRINGE IVF (11:53)
[2023-08-29] MEDS: SODIUM CHLORIDE 0.9 % (FLUSH) 10 ML SYRINGE IVF (10:39)
[2023-08-29] MEDS: HEPARIN 500 UNIT/5 ML SYRINGE IVF (10:39)
[2023-10-04] MEDS: SODIUM CHLORIDE 0.9 % (FLUSH) 10 ML SYRINGE IVF (09:46)
[2023-10-04] MEDS: HEPARIN 500 UNIT/5 ML SYRINGE IVF (09:46)
== END 2023-12-08 23:59 | disposition home or self-care (01) ==
LOC: CCIC 09:30
PROVIDERS: Visit Provider Clinical Nurse Specialist
DX: C20 Malignant neoplasm of rectum (principal)
CPT/HCPCS: 99211; J1642

== ENCOUNTER 2024-06-24 10:00 | Outpatient (RCR) | payer BC, SELFPAY ==
[2024-01-16] MEDS: HEPARIN 500 UNIT/5 ML SYRINGE IVF (10:07)
[2024-01-16] MEDS: SODIUM CHLORIDE 0.9 % (FLUSH) 10 ML SYRINGE IVF (10:07)
[2024-03-03] MEDS: HEPARIN 500 UNIT/5 ML SYRINGE IVF (10:14)
[2024-03-03] MEDS: SODIUM CHLORIDE 0.9 % (FLUSH) 10 ML SYRINGE IVF (10:14)
[2024-05-19] MEDS: HEPARIN 500 UNIT/5 ML SYRINGE IVF (10:47)
[2024-05-19] MEDS: SODIUM CHLORIDE 0.9 % (FLUSH) 10 ML SYRINGE IVF (10:47)
[2024-06-24] MEDS: HEPARIN 500 UNIT/5 ML SYRINGE IVF (10:45)
[2024-06-24] MEDS: SODIUM CHLORIDE 0.9 % (FLUSH) 10 ML SYRINGE IVF (10:45)
== END 2024-07-14 23:59 | disposition home or self-care (01) ==
LOC: CCIC 10:00
PROVIDERS: Visit Provider Clinical Nurse Specialist
DX: C20 Malignant neoplasm of rectum (principal)
CPT/HCPCS: 99211; J1642

== ENCOUNTER 2024-11-14 10:15 | Outpatient (RCR) | payer BC, SELFPAY ==
[2024-07-29] MEDS: HEPARIN 500 UNIT/5 ML SYRINGE IVF (10:43)
[2024-07-29] MEDS: SODIUM CHLORIDE 0.9 % (FLUSH) 10 ML SYRINGE IVF (10:43)
[2024-10-09] MEDS: HEPARIN 500 UNIT/5 ML SYRINGE IVF (10:12)
[2024-10-09] MEDS: SODIUM CHLORIDE 0.9 % (FLUSH) 10 ML SYRINGE IVF (10:12)
[2024-11-14] MEDS: SODIUM CHLORIDE 0.9 % (FLUSH) 10 ML SYRINGE IVF (10:19)
[2024-11-14] MEDS: HEPARIN 500 UNIT/5 ML SYRINGE IVF (10:19)
== END 2025-01-25 23:59 | disposition home or self-care (01) ==
LOC: CCIC 10:15
PROVIDERS: Visit Provider Clinical Nurse Specialist
DX: C20 Malignant neoplasm of rectum (principal)
CPT/HCPCS: 36591; 99211; J1642